=== PATIENT | female | born 1990 | race Caucasian/White ===

== ENCOUNTER → 2016-12-02 | Outpatient (CLI) | payer BC ==
--- NOTE | 2016-12-02 15:36 | US ---
EXAMINATION TYPE: US OB anatomy transabd DATE OF EXAM: 12/02/2016 11:40 AM COMPARISON: NONE HISTORY: 26-year-old female LGA TECHNIQUE: Transabdominal (TA) FINDINGS: EXAM MEASUREMENTS: GESTATIONAL AGE / DATING Physician Established: (18 weeks/6 days) EDC: 04/29/17 Dates by LMP: unknown Dates by First Scan: no prior Dates by Current Scan for: (19 weeks/1 days) EDC: 04/27/17 SURVEY IUP: Single PLACENTA: Anterior PREVIA: No previa TAINA: 14.5 cm Normal CERVICAL LENGTH (transabdominal: norm > 3.0cm): Long and closed, measured at 7.9 cm by the sonographe r. BIOMETRY PRESENTATION: Breech LIE: Transverse lie with head maternal RT BPD: 4.4 cm 19 weeks / 1 days HC: 16.2 cm 19 weeks / 0 days AC: 14.9 cm 20 weeks / 1 days FL: 3.0 cm 19 weeks / 1 days ESTIMATED WEIGHT IN GRAMS: 301 grams ESTIMATED WEIGHT IN LBS/OZS: 0 lbs. 11 oz. WEIGHT PERCENTAGE BASED ON ESTABLISHED DATE: 86.2 % HC/AC: 1.08 (1.09 - 1.26) FL/AC: 19.85 HEART RATE: 150 bpm RHYTHM: Normal ANATOMY SEEN (within normal limits): Cisterna Magna (< 1.1 cm) - 0.3cm Nuchal Fold (< 0.6 cm) - 0.3cm Cerebellum (varies with age) - 1.6cm Choroid Plexus (bilateral) Midline Falx Cavus Septi Pellucidi Four Chamber Heart Outflow tracts: LVOT/RVOT Stomach Situs Diaphragm Kidneys (bilateral) Bladder Cord Insert Three Vessel Cord Arms (bilateral) Legs (bilateral) ANATOMY NOT SEEN: due to position Lateral Vent (< 1 cm) - will need to be remeasured in the correct location. Longitudinal Spine Transverse Spine Nose / Lips - bottom lip not seen TECHNOLOGIST IMPRESSION: Single viable IUP 19wks/1day with ALVIN of 04/27/17. Patient scheduled for OB callback 12/12/16 at 3:40pm to obtain spine images IMPRESSION: 1. Single live intrauterine with established gestational age of 18 weeks 6 days. Current ul trasound biometry is concordant (19 weeks 1 day) placing the child at the 86th percentile for weight. 2. A few of the structures on the survey were suboptimally visualized (lateral ventricles, long itudinal and transverse spine, nose/lips). Patient has been scheduled for a rescan for missed structu res on 12/12/2016. 3. We note a borderline low HC/AC though individual biometry falls within the normal range. Thi s can be reassessed on the rescan.
--- NOTE | 2016-12-13 08:02 | US ---
EXAMINATION TYPE: US OB Call Back DATE OF EXAM: 12/12/2016 3:37 PM COMPARISON: 12/02/2016 CLINICAL HISTORY: OB Call Back. Spine, lat ventr, nose and lips, hc/ac GESTATIONAL AGE / DATING Dates by Initial Survey Scan: (20 weeks/2 days) EDC: 04/27/2017 HEART RATE: 143 bpm RHYTHM: Normal ANATOMY SEEN (second anatomic survey look): Lateral Vent (< 1 cm):0.6 cm Nose / Lips: yes Longitudinal Spine: yes Transverse Spine: yes hc/ac ratio: 1.18 (1.09-1.26) wnl TECHNOLOGIST IMPRESSION: vaible iup, age appropiate Patient return for directed imaging to complete the anatomy ultrasound of 12/02/2016. IMPRESSION: Single intrauterine gestation. Additional imaging performed to complete the anatomy. Portions i xochilt at this time are normal. 2. Please also see 12/02/2016 ultrasound report.
== END | disposition home or self-care (01) ==
LOC: RADUSWWP 10:51
PROVIDERS: ATTEND Obstetrics & Gynecology
DX: O36.62X0 Maternal care for excessive fetal growth, second trimester, not applicable or unspecified (principal); Z3A.18 18 weeks gestation of pregnancy
CPT/HCPCS: 76811

== ENCOUNTER 2017-04-16 14:36 | Outpatient (CLI) | payer BC ==
[2017-04-16 15:29] LABS: Basophils # (A) 0.1 k/uL (0-0.2); Basophils % (A) 1 %; CH 31.9; CHCM 33.9; Eosinophils # (A) 0.1 k/uL (0-0.7); Eosinophils % (A) 1 %; HCT 37.2 % (34.0-46.0); HDW 2.63; HGB 12.3 gm/dL (11.4-16.0); Luc # (Auto) 0.27; Luc % (Auto) 3; Lymphocytes # (A) 1.5 k/uL (1.0-4.8); Lymphocytes % (A) 16 %; MCH 31.4 pg (25.0-35.0); MCHC 33.2 g/dL (31.0-37.0); MCV 94.6 fL (80.0-100.0); Mean Platelet Volume 7.3; Monocytes # (A) 0.8 k/uL (0-1.0); Monocytes % (A) 8 %; Neutrophils # (A) 6.6 k/uL (1.3-7.7); Neutrophils % (A) 72 %; RBC 3.93 m/uL (3.80-5.40); RDW 13.9 % (11.5-15.5); WBC 9.3 k/uL (3.8-10.6); WBC (Perox) 9.84
[2017-04-16 15:38] LABS: Appearance,Urine Clear (Clear); Bacteria,Urine Few /hpf; Bilirubin,Urine Negative (Negative); Glucose,Urine (UA) Negative (Negative); Ketones,Urine Negative (Negative); Leukocyte Esterase,Urine Small (Negative); Nitrite,Urine Negative (Negative); Particle Count 1974; Protein,Urine Negative (Negative); RBC,Urine 1 /hpf (0-5); Specific Gravity,Urine 1.004 (1.001-1.035); Squamous Epithelial Cell,Urine <1 /hpf (0-4); UA Billing (MACRO vs. MICRO) MICRO; Urobilinogen,Urine <2.0 mg/dL (<2.0); WBC,Urine 2 /hpf (0-5)
[2017-04-16 15:40] LABS: ALT 42 U/L (9-52); AST 22 U/L (14-36); Blood Urea Nitrogen 7 mg/dL (7-17); LDH 398 U/L (313-618); Non-African American GFR(MDRD) >60 (>60 ml/min/1.73 sqM); Uric Acid 2.6 mg/dL (3.7-7.4)
== END 2017-04-16 16:41 | disposition home or self-care (01) ==
LOC: FBPOP 14:36
PROVIDERS: ATTEND Obstetrics & Gynecology
DX: O16.3 Unspecified maternal hypertension, third trimester (principal); Z3A.38 38 weeks gestation of pregnancy
CPT/HCPCS: 59025; 81001; 82565; 83615; 84450; 84460; 84520; 84550; 85025; 99215

== ENCOUNTER 2017-04-24 05:41 | Inpatient (IN) | payer BC ==
[2017-04-24] MEDS ORDERED: LIDOCAINE 1% (PF) 10 MG/ML (30 ML SDV) SQ PRN (06:05)
[2017-04-24] MEDS ORDERED: TERBUTALINE 1 MG/ML VIAL SQ PRN (06:05)
[2017-04-24] MEDS ORDERED: OXYTOCIN 20 UNITS/1000 ML NS 1,000 ML IV SCH (06:05)
[2017-04-24] MEDS ORDERED: CARBOPROST TROMETHAMINE 250 MCG/ML 1 ML AMP IM PRN (06:05)
[2017-04-24] MEDS ORDERED: OXYTOCIN 10 UNIT/ML 1 ML VIAL IM PRN (06:05)
[2017-04-24] MEDS ORDERED: METHYLERGONOVINE 0.2 MG/ML 1 ML AMP IM PRN (06:05)
--- NOTE | 2017-04-24 06:10 | P.HPOB ---
History of Present Illness H&P Date: 04/24/17 Chief Complaint: Patient's presenting for requested induction of labor. This patient is a pleasant 26-year-old 1 para 0 female estimated date of confinement 04/29/2017 estimated gestational age 39-2/7 weeks gestation who is presenting to labor and delivery for requested induction of labor. Patient did have an elevated blood pressure approximately 1-1/2 weeks ago but negative preeclampsia evaluation. Patient is now requesting induction of labor. care has otherwise been uncomplicated. Review of Systems Constitutional: Reports as per HPI Ears, nose, mouth and throat: Denies headache, Denies sore throat Cardiovascular: Denies chest pain, Denies shortness of breath Respiratory: Denies cough Gastrointestinal: Reports heartburn Genitourinary: Reports Menstruation: Reports amenorrhea Musculoskeletal: Denies myalgias Integumentary: Denies pruritus, Denies rash Neurological: Denies numbness, Denies weakness Psychiatric: Denies anxiety, Denies depression Endocrine: Denies fatigue, Denies weight change Past Medical History Past Medical History: No Reported History History of Any Multi-Drug Resistant Organisms: None Reported Past Surgical History: Cholecystectomy Past Anesthesia/Blood Transfusion Reactions: No Reported Reaction Past Psychological History: No Psychological Hx Reported Smoking Status: Never smoker Past Alcohol Use History: None Reported Past Drug Use History: None Reported Medications and Allergies Home Medications Medication Instructions Recorded Confirmed Type Pnv,Calcium 72/Iron/Folic Acid 1 tab PO DAILY 04/16/17 04/24/17 History [ Plus Tablet] Iron 45 mg PO DAILY 04/24/17 04/24/17 History Ranitidine HCl [Zantac] 150 mg PO HS 04/24/17 04/24/17 History Allergies Allergy/AdvReac Type Severity Reaction Status Date / Time Penicillins Allergy Rash/Hives Verified 04/24/17 06:02 Exam - Vital Signs Vital signs: Intake and Output 04/23/17 04/23/17 04/24/17 14:59 22:59 06:59 Other: Weight 86.183 kg Patient Weight 04/24/17 06:59 Weight 86.183 kg - OBG Physical Exam Abdomen: bowel sounds normal, no diffuse tenderness, no bruit present, no guarding noted, no hepatomegaly, no splenomegaly, no mass Vulva: both: normal Vagina: normal moisture, no discharge Cervix: Cervix and office was 1-2 cm dilated 50% effaced Cervix: no lesion, no discharge Uterus: enlarged Adnexa: both: normal Results blood work shows she is O positive, rubella nonimmune, RPR nonreactive , hepatitis B negative, Glucola was normal, group B strep was negative, ultrasounds have shown normal anatomy. Assessment and Plan (1) Third trimester Narrative/Plan: This is a pleasant 26-year-old 1 para 0 female 39-2/7 weeks gestation admitted to labor and delivery for requested induction of labor. Plan is induction of labor and anticipate vaginal delivery. Status: Acute (2) Elective induction of labor planned Status: Acute
[2017-04-24 06:34] VITALS: BMI 27.2
[2017-04-24] MEDS: LACTATED RINGERS 1,000 ML IV SCH ×2 (06:38→12:33)
[2017-04-24 07:02] LABS: Basophils % (A) 0 %; CH 32.6; CHCM 34.5; Eosinophils # (A) 0.1 k/uL (0-0.7); Eosinophils % (A) 1 %; HCT 37.7 % (34.0-46.0); HDW 2.63; HGB 12.3 gm/dL (11.4-16.0); Luc # (Auto) 0.14; Luc % (Auto) 1; Lymphocytes # (A) 1.2 k/uL (1.0-4.8); Lymphocytes % (A) 12 %; MCH 30.9 pg (25.0-35.0); MCHC 32.5 g/dL (31.0-37.0); Mean Platelet Volume 7.3; Monocytes # (A) 0.6 k/uL (0-1.0); Monocytes % (A) 6 %; Neutrophils % (A) 80 %; RBC 3.97 m/uL (3.80-5.40); RDW 14.1 % (11.5-15.5); WBC (Perox) 10.38
[2017-04-24] MEDS ORDERED: BUPIVACAINE (PF) 0.25% 30 ML VIAL ONE (13:24)
[2017-04-24] MEDS ORDERED: SODIUM CHLORIDE 0.9% 100 ML BAG ONE (13:24)
[2017-04-24] MEDS ORDERED: fentaNYL (PF) 50 MCG/ML 5 ML AMP ONE (13:24)
[2017-04-24] MEDS ORDERED: ACETAMINOPHEN TAB 325 MG TAB PO PRN (19:02)
[2017-04-24] MEDS ORDERED: BISACODYL 10 MG SUPP RECTAL PRN (19:02)
[2017-04-24] MEDS ORDERED: SIMETHICONE 80 MG CHEWABLE PO PRN (19:02)
[2017-04-24] MEDS ORDERED: BENZOCAINE/MENTHOL SPRAY 1 GM/SPRAY AEROSOL TOPICAL PRN (19:02)
[2017-04-24] MEDS ORDERED: Acetaminophen-Codeine 300-30mg TAB PO PRN ×2 (19:02)
[2017-04-24] MEDS ORDERED: diphenhydrAMINE 25 MG CAP PO PRN (19:02)
[2017-04-24] MEDS ORDERED: ZOLPIDEM 5 MG TAB PO PRN (19:02)
[2017-04-24] MEDS ORDERED: diphenhydrAMINE 50 MG/ML 1 ML VIAL IVP PRN (19:02)
[2017-04-24] MEDS ORDERED: LANOLIN CREAM 5 GM TUBE TOPICAL PRN (19:02)
[2017-04-24] MEDS ORDERED: MEASLES-MUMPS-RUBELLA VACC/PF 12,500 UNIT/0.5 ML VIAL SQ ONE (19:02)
[2017-04-24] MEDS ORDERED: WITCH HAZEL 1 EACH MED..PAD TOPICAL PRN (19:02)
[2017-04-24] MEDS ORDERED: HYDROCORTISONE 2.5% RECTAL CREAM 30 GM TUBE RECTAL PRN (19:02)
--- NOTE | 2017-04-24 19:25 | P.PROBDLV ---
Vaginal Delivery Note - . Vaginal Delivery Note: Normal vaginal delivery viable male infant Apgars 8 and 9 delivery time is 1849 hrs. Please see dictated H&P for intimate details of this patient's admission. Brief summary this is a pleasant 26-year-old 1 para 0 female 39-2/7 weeks gestation who is admitted to labor and delivery for delivery secondary to mild gestational hypertension at term. I admission patient is approximately 2 cm dilated is artificial rupture membranes for clear fluid. Labor is induced with Pitocin. Patient's labor progresses and she does get an epidural for pain control. Patient pushes for approximately 40 minutes and pushes the head to the perineum. Posterior perineum was infiltrated with 1% lidocaine and a midline episiotomy is made. We then have controlled delivery of the 's head over the perineum. Mouth and nares are bulb suctioned. There is no evidence of a nuchal cord. With gentle downward traction we then have deliver the anterior shoulder and posterior shoulder and rest this infant's body. This is a vigorous viable male infant Apgars are 8 and 9 delivery time is 1849 hrs. After delivery of the infant the umbilical cord is doubly clamped and cut appears to be trivascular. The placenta is then spontaneously delivered intact. Inspection of perineum shows a partial third-degree laceration. About 15% of the sphincter is actually disrupted and a superficial. This is reinforced with 3-0 Vicryl interrupted fashion. The rest of the laceration is repaired with 3-0 Vicryl in a running fashion in the usual manner. Excellent reapproximation is noted. There is also a superficial right labial laceration does not require sutures. This done ARE correct 3. There are no complications. and mother stable delivery room.
[2017-04-24] MEDS: IBUPROFEN 600 MG TAB PO PRN (20:24)
[2017-04-24] MEDS: SENNOSIDES-DOCUSATE SODIUM 1 EACH TAB PO SCH (21:37)
--- NOTE | 2017-04-25 05:49 | P.PNOBGVD ---
Subjective - Subjective Patient reports: Reports appetite normal, Reports voiding normally, Reports pain well controlled, Reports ambulating normally : doing well Objective - Latest Vital Signs Latest vital signs: Vital Signs Temp Pulse Resp BP 04/25/17 04:00 98.2 F 87 16 129/77 04/24/17 23:40 98.4 F 77 16 138/82 04/24/17 21:24 97.7 F 84 16 134/79 04/24/17 20:54 98.6 F 105 H 16 124/70 04/24/17 20:24 98.1 F 98 18 123/57 04/24/17 20:09 100 18 128/74 04/24/17 19:54 97.4 F L 96 18 121/69 04/24/17 19:39 96 18 116/64 04/24/17 19:24 97.8 F 90 18 118/61 04/24/17 06:10 97.6 F 85 16 138/87 Intake and Output 04/24/17 04/24/17 04/25/17 14:59 22:59 06:59 Intake Total 654.117 Balance 654.117 Intake: Intake, IV Titration 654.117 Amount Oxytocin 20 Units/1000 ml 654.117 Ns 1,000 ml @ 1 MILLIUNIT/MIN 3 mls/hr IV .Q24H [facility] Rx#:[id number] Other: # Voids 1 1 - Exam Lungs: bilateral: normal Chest: Normal S1, Normal S2 Extremities: Present: normal Abdomen: Present: normal appearance, soft Uterus: Present: normal, firm - Labs Labs: Abnormal Lab Results - Last 24 Hours (Table) 04/24/17 Range/Units 06:10 Neutrophils # 8.0 H (1.3-7.7) k/uL Assessment and Plan (1) Third trimester Narrative/Plan: Post day 1. Patient is resting without complaints. Vital signs are stable she is afebrile. Uterus is firm nontender she's having normal lochia. My impression is a normal course. Plan is to continue routine care discharge home tomorrow. Current Visit: Yes Status: Acute Code(s): Z33.1 - STATE, INCIDENTAL SNOMED Code(s): 90262312 (2) Elective induction of labor planned Current Visit: Yes Status: Acute Code(s): QKF9057 - SNOMED Code(s): 479293586
[2017-04-25] MEDS: IBUPROFEN 600 MG TAB PO PRN ×2 (06:26→16:50)
[2017-04-25] MEDS: SENNOSIDES-DOCUSATE SODIUM 1 EACH TAB PO SCH ×2 (08:07→19:36)
[2017-04-25] MEDS ORDERED: DIPH,PERTUS(ACELL)TETVAC-LF 0.5 ML VIAL IM ONE (16:21)
[2017-04-26] MEDS: IBUPROFEN 600 MG TAB PO PRN (04:16)
--- NOTE | 2017-04-26 07:08 | P.PNOBGVD ---
Subjective - Subjective Patient reports: Reports appetite normal, Reports voiding normally, Reports pain well controlled, Reports ambulating normally : doing well Objective - Latest Vital Signs Latest vital signs: Vital Signs Temp Pulse Resp BP Pulse Ox 04/25/17 23:54 97.5 F L 83 17 122/85 100 04/25/17 16:00 98.4 F 80 17 112/76 97 04/25/17 12:00 97.8 F 83 17 135/84 100 04/25/17 08:00 97.5 F L 99 17 132/73 98 Intake and Output 04/25/17 04/26/17 04/26/17 22:59 06:59 14:59 Other: # Voids 3 1 - Exam Lungs: bilateral: normal Chest: Normal S1, Normal S2 Extremities: Present: normal Abdomen: Present: normal appearance, soft Uterus: Present: normal, firm Assessment and Plan (1) Third trimester Narrative/Plan: Post day #2. Patient is resting without complaints. Vital signs are stable she's afebrile. I impression this is a normal course. Plan is to continue routine care discharge home later today. Current Visit: Yes Status: Acute Code(s): Z33.1 - STATE, INCIDENTAL SNOMED Code(s): 74480429 (2) Elective induction of labor planned Current Visit: Yes Status: Acute Code(s): [id number] - SNOMED Code(s): 079324627
--- NOTE | 2017-04-26 07:11 | P.DS ---
Providers Date of admission: 04/24/17 05:41 Expected date of discharge: 04/26/17 Attending physician: Elver Mcrae Primary care physician: Stated None - Discharge Diagnosis(es) (1) Third trimester Current Visit: Yes Status: Acute (2) Elective induction of labor planned Current Visit: Yes Status: Acute Hospital Course: Please see dictated H&P for intimate details of this patient's admission. Brief summary is a pleasant 26-year-old 1 para 0 female 39-2/7 weeks gestation admitted to labor and delivery for requested induction of labor. Patient is admitted has uncomplicated induction of labor was on have a vaginal delivery viable male infant. Please see dictated delivery note. day #2 she is felt be stable for discharge home follow up with me in 6 weeks. Procedures: Induction of labor and normal vaginal delivery. Patient Condition at Discharge: Good Plan - Discharge Summary New Discharge Prescriptions: New Acetaminophen-Codeine 300-30mg [Tylenol w/codeine #3] 1 - 2 each PO Q4HR PRN #30 tab PRN Reason: Mild Pain exceeding Tylenol Ibuprofen [Motrin] 600 mg PO Q6HR PRN #40 tab PRN Reason: Mild Pain Or Fever >= 100.5 No Action Pnv,Calcium 72/Iron/Folic Acid [ Plus Tablet] 1 tab PO DAILY Ranitidine HCl [Zantac] 150 mg PO HS Iron 45 mg PO DAILY Discharge Medication List Pnv,Calcium 72/Iron/Folic Acid [ Plus Tablet] 1 tab PO DAILY 04/16/17 [ History] Iron 45 mg PO DAILY 04/24/17 [History] Ranitidine HCl [Zantac] 150 mg PO HS 04/24/17 [History] Acetaminophen-Codeine 300-30mg [Tylenol w/codeine #3] 1 - 2 each PO Q4HR PRN # 30 tab 04/26/17 [Rx] Ibuprofen [Motrin] 600 mg PO Q6HR PRN #40 tab 04/26/17 [Rx] Follow up Appointment(s)/Referral(s): Elver Mcrae MD [STAFF PHYSICIAN] - 06/02/17 2:30 pm Patient Instructions/Handouts: Vaginal Delivery (DC) Activity/Diet/Wound Care/Special Instructions: No intercourse or anything per vagina for 6 weeks. Please call if any fever, chills, excessive vaginal bleeding, and/or abdominal pain. Discharge Disposition: HOME SELF-CARE
[2017-04-26 08:42] VITALS: BP 128/67; PULSE 80; RESP 16; TEMP 97.9
[2017-04-26] MEDS: SENNOSIDES-DOCUSATE SODIUM 1 EACH TAB PO SCH (10:14)
== END 2017-04-26 11:20 | disposition home or self-care (01) | DRG 775 ==
LOC: 4FBP 05:41
PROVIDERS: ADMIT Obstetrics & Gynecology; ATTEND Obstetrics & Gynecology
PROC: 0DQR0ZZ Repair Anal Sphincter, Open Approach (ICD-10-PCS; principal; 2017-04-24)
PROC: 3E033VJ Introduction of Other Hormone into Peripheral Vein, Percutaneous Approach (ICD-10-PCS; principal; 2017-04-24)
PROC: 3E0R3CZ (ICD-10-PCS; principal; 2017-04-24)
PROC: 10907ZC Drainage of Amniotic Fluid, Therapeutic from Products of Conception, Via Natural or Artificial Opening (ICD-10-PCS; principal; 2017-04-24)
PROC: 0W8NXZZ Division of Female Perineum, External Approach (ICD-10-PCS; principal; 2017-04-24)
PROC: 10E0XZZ Delivery of Products of Conception, External Approach (ICD-10-PCS; principal; 2017-04-24)
PROC: 00HU33Z Insertion of Infusion Device into Spinal Canal, Percutaneous Approach (ICD-10-PCS; principal; 2017-04-24)
DX: O13.4 Gestational [pregnancy-induced] hypertension without significant proteinuria, complicating childbirth (principal); O70.20 Third degree perineal laceration during delivery, unspecified; Z88.0 Allergy status to penicillin; Z37.0 Single live birth; Z3A.39 39 weeks gestation of pregnancy
CPT/HCPCS: 85025; 88307; 90471; 90472; 90707; 90715

== ENCOUNTER → 2018-05-09 | Outpatient (CLI) | payer BC ==
[2018-05-09 10:25] LABS: Appearance,Urine Clear (Clear); Bilirubin,Urine Negative (Negative); Blood,Urine Negative (Negative); Color,Urine Yellow; Glucose,Urine (UA) Negative (Negative); Ketones,Urine Negative (Negative); Leukocyte Esterase,Urine Negative (Negative); Nitrite,Urine Negative (Negative); Protein,Urine Negative (Negative); Specific Gravity,Urine 1.008 (1.001-1.035); Urobilinogen,Urine <2.0 mg/dL (<2.0)
== END | disposition home or self-care (01) ==
LOC: LABWHC1 10:00
PROVIDERS: ATTEND Obstetrics & Gynecology
DX: R30.0 Dysuria (principal)
CPT/HCPCS: 81003; 87086

== ENCOUNTER 2018-10-29 10:36 | Outpatient (CLI) | payer OTHER ==
[2018-10-29 12:39] VITALS: BP 137/91; PULSE 111; RESP 16; TEMP 97.3
--- NOTE | 2018-11-18 08:35 | P.MSEPDOC ---
Presenting Problems - Arrival Data Date of Arrival on Unit: 10/29/18 Time of Arrival on Unit: 10:49 Mode of Transport: Ambulatory - Complaint OB-Reason for Admission/Chief Complaint: NST Medical History - Information : 2 Para: 1 - Gestational Age Gestational Age by ALVIN (wks/days): 37 Weeks and 0 Days Review of Systems - Review of Systems Constitutional: No problems Breast: No problems ENT: No problems Cardiovascular: No problems Respiratory: No problems Gastrointestinal: No problems Genitourinary: No problems Musculoskeletal: No problems Neurological: No problems Skin: No problems Vital Signs - Temperature Temperature: 97.3 F Temperature Source: Temporal Artery Scan - Pulse Right Sitting Brachial Pulse Rate: 111 Pulse Assessment Method: Automatic Cuff - Respirations Respiratory Rate: 16 Oxygen Delivery Method: Room Air O2 Sat by Pulse Oximetry: 100 - Blood Pressure Right Arm Sitting Blood Pressure: 137/91 Blood Pressure Mean: 106 Blood Pressure Source: Automatic Cuff Medical Screen Scoring (Pre) - Cervical Exam Dilation: Exam Deferred Effacement: Exam Deferred - Uterine Contractions Frequency: N/A Duration: N/A Intensity: N/A - Maternal Vital Signs Maternal Temperature: N/A Signs of Preeclampsia: Headache = 1 Maternal Respirations: N/A - Pain Assessment Pain Scale Used: Numeric (1 - 10) Pain Intensity: 0 - Maternal Trauma Maternal Trauma: N/A - Assessment Baseline FHR: 135 Heart Rate - NICHD Category: Category I (Normal) = 0 NST: Reactive Position: N/A Station: N/A - Total Score Total Score (Pre): 1 - Level of Risk Level of Risk: Low (0-5) Physician Notification (Pre) - Physician Notified Physician Notified Date: 10/29/18 Physician Notified Time: 12:15 Spoke With: Dr Kushal Lopez Order Received: Yes - Notification Comment Comment: discharge pt home with instructions Disposition - Disposition OB Disposition: Discharge to home, Written follow up instructions reviewed Discharge Date: 10/29/18 Discharge Time: 12:25 I agree with the RN Medical Screening Exam: Yes Risk & Benefit of care provided described in d/c instruction: Yes Diagnosis: UNSPECIFIED MATERNAL HYPERTENSION, THIRD TRIMESTER
== END 2018-10-29 12:25 | disposition home or self-care (01) ==
LOC: FBPOP 10:36
PROVIDERS: ATTEND Obstetrics & Gynecology
DX: O16.3 Unspecified maternal hypertension, third trimester (principal); Z3A.37 37 weeks gestation of pregnancy
CPT/HCPCS: 59025

== ENCOUNTER → 2018-10-29 | Outpatient (CLI) | payer OTHER ==
[2018-10-29 11:09] LABS: HCT 35.2 % (34.0-46.0); HGB 11.2 gm/dL (11.4-16.0); MCH 28.3 pg (25.0-35.0); MCHC 31.7 g/dL (31.0-37.0); MCV 89.3 fL (80.0-100.0); Mean Platelet Volume 7.2; Platelet Count 267 k/uL (150-450); RBC 3.94 m/uL (3.80-5.40); RDW 14.2 % (11.5-15.5); WBC 9.2 k/uL (3.8-10.6)
[2018-10-29 11:10] LABS: Appearance,Urine Clear (Clear); Bacteria,Urine Occasional /hpf; Bilirubin,Urine Negative (Negative); Blood,Urine Negative (Negative); Color,Urine Light Yellow; Glucose,Urine (UA) Negative (Negative); Ketones,Urine Negative (Negative); Leukocyte Esterase,Urine Small (Negative); Mucus,Urine Rare /hpf; Nitrite,Urine Negative (Negative); PH, Urine 7.5 (5.0-8.0); Protein,Urine Negative (Negative); Specific Gravity,Urine 1.003 (1.001-1.035); Squamous Epithelial Cell,Urine 2 /hpf (0-4); Urobilinogen,Urine <2.0 mg/dL (<2.0); WBC,Urine 1 /hpf (0-5)
[2018-10-29 15:44] LABS: Uric Acid 3.4 mg/dL (2.9-7.7)
[2018-10-29 19:46] LABS: Creatinine,Urine Random 22.3 mg/dL
[2018-10-29 20:25] LABS: Total Protein,Urine Random <4.0 mg/dL (0.0-13.5)
== END ==
LOC: LABWHC1 10:09
PROVIDERS: ATTEND Obstetrics & Gynecology
DX: O14.90 Unspecified pre-eclampsia, unspecified trimester (principal); Z3A.00 Weeks of gestation of pregnancy not specified
CPT/HCPCS: 36415; 81001; 82565; 82570; 83615; 84156; 84450; 84460; 84520; 84550; 85027

== ENCOUNTER 2018-11-03 10:19 | Outpatient (CLI) | payer OTHER ==
[2018-11-03 16:29] VITALS: BP 134/87; PULSE 90; RESP 16; TEMP 98.1
--- NOTE | 2018-11-04 08:50 | P.MSEPDOC ---
Presenting Problems - Arrival Data Date of Arrival on Unit: 11/03/18 Time of Arrival on Unit: 10:20 Mode of Transport: Ambulatory - Complaint OB-Reason for Admission/Chief Complaint: NST Medical History - Information : 2 Para: 1 Term: 1 : 0 Abortions: Spontaneous or Elective: 0 Number of Living Children: 1 - Gestational Age Gestational Age by ALVIN (wks/days): 38 Weeks and 6 Days Review of Systems - Review of Systems Constitutional: No problems Breast: No problems ENT: No problems Cardiovascular: No problems Respiratory: No problems Gastrointestinal: No problems Genitourinary: No problems Musculoskeletal: No problems Neurological: No problems Skin: No problems Vital Signs - Temperature Temperature: 98.1 F Temperature Source: Oral - Pulse Right Brachial Pulse Rate: 90 Pulse Assessment Method: Automatic Cuff - Respirations Respiratory Rate: 16 Oxygen Delivery Method: Room Air - Blood Pressure Right Arm Blood Pressure: 134/87 Blood Pressure Mean: 102 Blood Pressure Source: Automatic Cuff Medical Screen Scoring (Pre) - Cervical Exam Dilation: Exam Deferred Effacement: Exam Deferred Membranes: Intact - Uterine Contractions Frequency: N/A Duration: N/A Intensity: N/A - Maternal Vital Signs Maternal Temperature: N/A Maternal Blood Pressure: N/A Signs of Preeclampsia: N/A Maternal Respirations: N/A - Pain Assessment Pain Scale Used: Numeric (1 - 10) Pain Intensity: 0 Pain Management Goal: 0 - Maternal Trauma Maternal Trauma: N/A - Assessment Baseline FHR: 135 Heart Rate - NICHD Category: Category I (Normal) = 0 NST: Reactive Position: N/A Station: N/A - Total Score Total Score (Pre): 0 - Level of Risk Level of Risk: N/A Physician Notification (Pre) - Physician Notified Physician Notified Date: 11/03/18 Physician Notified Time: 11:00 Physician/Practitioner Notifed:: Dr. Dunbar Spoke With: Dr. Dunbar New Order Received: Yes - Notification Comment Comment: d/c home Disposition - Disposition Discharge Date: 11/03/18 Discharge Time: 11:00 I agree with the RN Medical Screening Exam: Yes Risk & Benefit of care provided described in d/c instruction: Yes Diagnosis: GESTATIONAL HTN W/O SIGNIFICANT PROTEINURIA, THIRD TRIMESTER
== END 2018-11-03 11:00 | disposition home or self-care (01) ==
LOC: FBPOP 10:19
PROVIDERS: ATTEND Obstetrics & Gynecology
DX: O13.3 Gestational [pregnancy-induced] hypertension without significant proteinuria, third trimester (principal); Z3A.38 38 weeks gestation of pregnancy
CPT/HCPCS: 59025; 99213

== ENCOUNTER 2018-11-12 05:41 | Inpatient (IN) | payer BC, OTHER ==
--- NOTE | 2018-11-11 07:22 | P.HPOB ---
History of Present Illness H&P Date: 11/11/18 Chief Complaint: Requested induction of labor This patient is a pleasant 28-year-old 2 para 1 female estimated date of confinement 11/19/2018 estimated gestational age 39 weeks who presents to labor and delivery for requested induction of labor. Patient's care has been uncomplicated. Patient uncomfortable desires delivery at this time. Review of Systems Gastrointestinal: Reports heartburn Genitourinary: Reports Menstruation: Reports amenorrhea Past Medical History Past Medical History: No Reported History History of Any Multi-Drug Resistant Organisms: None Reported Past Surgical History: Cholecystectomy, Orthopedic Surgery Past Anesthesia/Blood Transfusion Reactions: No Reported Reaction Past Psychological History: No Psychological Hx Reported Smoking Status: Never smoker Past Alcohol Use History: None Reported Past Drug Use History: None Reported - Past Family History Mother Additional Family Medical History / Comment(s): Lupus Father Family Medical History: Hypertension Medications and Allergies Home Medications Medication Instructions Recorded Confirmed Type Pnv,Calcium 72/Iron/Folic Acid 1 tab PO DAILY 04/16/17 11/03/18 History [ Plus Tablet] Allergies Allergy/AdvReac Type Severity Reaction Status Date / Time Penicillins Allergy Rash/Hives Verified 11/03/18 10:57 Exam - OBG Physical Exam Abdomen: bowel sounds normal, no diffuse tenderness, no bruit present, no guarding noted, no hepatomegaly, no splenomegaly, no mass Vulva: both: normal Vagina: normal moisture, no discharge Cervix: Cervix in the office is 2 cm dilated 50% effaced -2 station. Cervix: no lesion, no discharge Uterus: enlarged (Fundal height is 38 cm) Results blood work shows she is O positive, rubella immune, hepatitis B is negative, RPR is nonreactive, HIV is nonreactive, Glucola was normal, group B strep was negative, ultrasounds have been normal. Assessment and Plan Assessment: This is a pleasant 28-year-old 2 para 1 female 39 weeks gestation who is requesting elective induction of labor. Plan is induction of labor and anticipate vaginal delivery. (1) Third trimester Status: Acute Code(s): Z33.1 - STATE, INCIDENTAL SNOMED Code(s): 04679210 (2) Elective induction of labor planned Status: Acute Code(s): [id number] - SNOMED Code(s): 982284299
[2018-11-12] MEDS: LACTATED RINGERS 1,000 ML IV SCH ×3 (05:45→15:20)
[2018-11-12] MEDS ORDERED: TERBUTALINE 1 MG/ML VIAL SQ PRN (05:50)
[2018-11-12] MEDS ORDERED: LIDOCAINE 1% INJ 10MG/ML (20 ML MDV) SQ PRN (05:50)
[2018-11-12] MEDS ORDERED: CARBOPROST TROMETHAMINE 250 MCG/ML 1 ML AMP IM PRN (05:50)
[2018-11-12] MEDS ORDERED: OXYTOCIN 10 UNIT/ML 1 ML VIAL IM PRN (05:50)
[2018-11-12] MEDS ORDERED: METHYLERGONOVINE 0.2 MG/ML 1 ML AMP IM PRN (05:50)
[2018-11-12] MEDS ORDERED: OXYTOCIN 20 UNITS/1000 ML NS 1,000 ML IV SCH ×2 (05:50→14:46)
[2018-11-12 05:56] VITALS: RESP 16; BMI 28.1
[2018-11-12 06:14] LABS: Basophils % (A) 0 %; Eosinophils # (A) 0.3 k/uL (0-0.7); Eosinophils % (A) 3 %; HCT 34.8 % (34.0-46.0); HGB 11.8 gm/dL (11.4-16.0); Lymphocytes % (A) 20 %; MCH 30.2 pg (25.0-35.0); MCV 88.8 fL (80.0-100.0); Mean Platelet Volume 7.2; Monocytes # (A) 0.6 k/uL (0-1.0); Monocytes % (A) 6 %; Neutrophils # (A) 6.8 k/uL (1.3-7.7); Neutrophils % (A) 69 %; Platelet Count 259 k/uL (150-450); RBC 3.93 m/uL (3.80-5.40); RDW 14.7 % (11.5-15.5); WBC 9.9 k/uL (3.8-10.6)
[2018-11-12] MEDS ORDERED: SODIUM CHLORIDE 0.9% 100 ML BAG ONE (09:50)
[2018-11-12] MEDS ORDERED: ROPIVACAINE 5MG/ML 20ML VIAL ONE (09:50)
[2018-11-12] MEDS ORDERED: fentaNYL (PF) 50 MCG/ML 5 ML AMP ONE (09:50)
[2018-11-12] MEDS ORDERED: diphenhydrAMINE 50 MG/ML 1 ML VIAL IVP PRN (14:46)
[2018-11-12] MEDS ORDERED: diphenhydrAMINE 25 MG CAP PO PRN (14:46)
[2018-11-12] MEDS ORDERED: SIMETHICONE 80 MG CHEWABLE PO PRN (14:46)
[2018-11-12] MEDS ORDERED: LANOLIN CREAM 5 GM TUBE TOPICAL PRN (14:46)
[2018-11-12] MEDS ORDERED: ZOLPIDEM 5 MG TAB PO PRN (14:46)
[2018-11-12] MEDS ORDERED: BISACODYL 10 MG SUPP RECTAL PRN (14:46)
[2018-11-12] MEDS ORDERED: WITCH HAZEL 1 EACH MED..PAD TOPICAL PRN (14:46)
[2018-11-12] MEDS ORDERED: ACETAMINOPHEN TAB 325 MG TAB PO PRN (14:46)
[2018-11-12] MEDS ORDERED: BENZOCAINE/MENTHOL SPRAY 1 GM/SPRAY AEROSOL TOPICAL PRN (14:46)
[2018-11-12] MEDS ORDERED: HYDROCORTISONE 2.5% RECTAL CREAM 30 GM TUBE RECTAL PRN (14:46)
[2018-11-12] MEDS ORDERED: IBUPROFEN 600 MG TAB PO PRN (14:46)
[2018-11-12] MEDS: SENNOSIDES-DOCUSATE SODIUM 1 EACH TAB PO SCH ×2 (15:19→20:16)
--- NOTE | 2018-11-12 17:45 | P.PROBDLV ---
Vaginal Delivery Note - . Vaginal Delivery Note: Normal vaginal delivery viable male infant Apgars 9 and 9 delivery time is 1353 hrs. Please see dictated H&P for intimate details of this patient's admission. In brief summary this is a pleasant 28-year-old 2 para 1 female 39 weeks gestation admitted to labor and delivery for requested elective induction of labor. Patient admitted she 3 cm dilated has artificial rupture membranes for clear fluid. Labor is induced with Pitocin. Labor progresses normally and she does get an epidural for pain control. Patient gets to complete pushes the head to the perineum. Posterior perineum is supported we have controlled delivery of 's head over the perineum. Mouth and nares are bulb suctioned. There is a nuchal cord 1 which is easily reduced. With gentle downward traction we then have delivery anterior and posterior shoulder and rest this 's body. Is a vigorous viable male infant Apgars are 9 and 9 delivery time is 1353 hrs. After delivery of the the umbilical cord is allowed to quit pulsating is doubly clamped and cut. The placenta is then spontaneously delivered intact. She has some atony at this time and some bleeding but is given one dose of Methergine and uterine massage bleeding does subside. As viable loss is 400 mL from delivery. Inspection of perineum shows second-degree laceration was repaired with 3-0 Vicryl usual fashion. Good reapproximation is noted. There are no complications. All counts are correct 3. and mother stable delivery room.
--- NOTE | 2018-11-13 06:13 | P.PNOBGVD ---
Subjective - Subjective Patient reports: Reports appetite normal, Reports voiding normally, Reports pain well controlled, Reports ambulating normally : doing well Objective - Latest Vital Signs Latest vital signs: Vital Signs Temp Pulse Resp BP 11/12/18 23:43 98.4 F 83 16 128/74 11/12/18 20:00 98 F 90 16 135/84 11/12/18 16:05 97.5 F L 84 16 118/60 11/12/18 15:35 97 16 145/65 11/12/18 15:05 93 16 137/85 11/12/18 14:50 102 H 16 132/68 11/12/18 14:35 102 H 16 133/68 11/12/18 14:20 97 16 122/66 11/12/18 14:05 98.2 F 89 16 121/79 Intake and Output 11/12/18 11/12/18 11/13/18 14:59 22:59 06:59 Intake Total 522.75 3300 Balance 522.75 3300 Intake: Intake, IV Titration 522.75 3300 Amount Lactated Ringers 1,000 ml 2000 @ 125 mls/hr IV .Q8H [facility] Rx#:[id number] Oxytocin 20 Units/1000 ml 522.75 Ns 1,000 ml @ 1 MILLIUNIT/MIN 3 mls/hr IV .Q24H [facility] Rx#:[id number] Oxytocin 20 Units/1000 ml 1300 Ns 1,000 ml @ Per Protocol IV .Q0M [facility] Rx#: [id number] Other: # Voids 1 - Exam Lungs: bilateral: normal Chest: Normal S1, Normal S2 Extremities: Present: normal Abdomen: Present: normal appearance, soft Uterus: Present: normal, firm Assessment and Plan Assessment: day #1. Patient is resting without complaints wishes to go home. Vital signs are stable she is afebrile. Uterus is firm nontender and she is having normal lochia. My impression this is a normal course. Plan is to continue routine care discharge home later today. (1) Third trimester Current Visit: No Status: Acute Code(s): Z33.1 - STATE, INCIDENTAL SNOMED Code(s): 37640769 (2) Elective induction of labor planned Current Visit: No Status: Acute Code(s): [id number] - SNOMED Code(s): 987032433
--- NOTE | 2018-11-13 06:17 | P.DS ---
Providers Date of admission: 11/12/18 05:41 Expected date of discharge: 11/13/18 Attending physician: Elver Mcrae Primary care physician: Stated None - Discharge Diagnosis(es) (1) Third trimester Current Visit: No Status: Acute (2) Elective induction of labor planned Current Visit: No Status: Acute Hospital Course: Please see dictated H&P for intimate details of this patient's admission. Brief summary is a pleasant 28-year-old 2 para 1 female 39 weeks gestation is admitted to labor and delivery for elective induction of labor. Patient is uncomplicated induction of labor goes on have a vaginal delivery viable male . Please see dictated delivery note. day #1 patient without complaints and she wishes to go home. Patient's felt be stable for discharge home follow up with me in 6 weeks. Procedures: Induction of labor and normal vaginal delivery Plan - Discharge Summary New Discharge Prescriptions: New Ibuprofen [Motrin] 600 mg PO Q6HR PRN #40 tab PRN Reason: Mild Pain Or Fever >= 100.5 No Action Pnv,Calcium 72/Iron/Folic Acid [ Plus Tablet] 1 tab PO DAILY Discharge Medication List Pnv,Calcium 72/Iron/Folic Acid [ Plus Tablet] 1 tab PO DAILY 04/16/17 [ History] Ibuprofen [Motrin] 600 mg PO Q6HR PRN #40 tab 11/13/18 [Rx] Follow up Appointment(s)/Referral(s): Elver Mcrae MD [STAFF PHYSICIAN] - 12/24/18 2:30 pm Patient Instructions/Handouts: Vaginal Delivery (DC) Activity/Diet/Wound Care/Special Instructions: No intercourse or anything per vagina for 6 weeks. Please call if any fever, chills, excessive vaginal bleeding, and/or abdominal pain. Discharge Disposition: HOME SELF-CARE
[2018-11-13 08:21] VITALS: BP 118/74; PULSE 91; TEMP 97.7
[2018-11-13] MEDS: SENNOSIDES-DOCUSATE SODIUM 1 EACH TAB PO SCH (08:22)
== END 2018-11-13 15:10 | disposition home or self-care (01) | DRG 807 ==
LOC: 4FBP 05:41
PROVIDERS: ADMIT Obstetrics & Gynecology; ATTEND Obstetrics & Gynecology
PROC: 10E0XZZ Delivery of Products of Conception, External Approach (ICD-10-PCS; principal; 2018-11-12)
PROC: 0KQM0ZZ Repair Perineum Muscle, Open Approach (ICD-10-PCS; 2018-11-12)
PROC: 00HU33Z Insertion of Infusion Device into Spinal Canal, Percutaneous Approach (ICD-10-PCS; 2018-11-12)
PROC: 3E0R3BZ Introduction of Anesthetic Agent into Spinal Canal, Percutaneous Approach (ICD-10-PCS; 2018-11-12)
PROC: 10907ZC Drainage of Amniotic Fluid, Therapeutic from Products of Conception, Via Natural or Artificial Opening (ICD-10-PCS; 2018-11-12)
PROC: 3E033VJ Introduction of Other Hormone into Peripheral Vein, Percutaneous Approach (ICD-10-PCS; 2018-11-12)
DX: O69.81X0 Labor and delivery complicated by cord around neck, without compression, not applicable or unspecified (principal); Z37.0 Single live birth; O70.1 Second degree perineal laceration during delivery; Z3A.39 39 weeks gestation of pregnancy; Z90.49 Acquired absence of other specified parts of digestive tract; Z79.899 Other long term (current) drug therapy; Z88.0 Allergy status to penicillin; Z82.49 Family history of ischemic heart disease and other diseases of the circulatory system; Z82.69 Family history of other diseases of the musculoskeletal system and connective tissue
CPT/HCPCS: 85025; 86850; 86900; 86901

== ENCOUNTER → 2021-09-14 | Outpatient (CLI) | payer BC ==
--- NOTE | 2021-09-14 15:25 | USB ---
EXAMINATION TYPE: US breast complete LT DATE OF EXAM: 09/14/2021 COMPARISON: NONE CLINICAL HISTORY: N64.4 Breast pain. Findings: The left breast was scanned with ultrasound in all 4 quadrants in the retroareolar region and axillar y tail. An incidental intramammary lymph node is noted in the left breast at 3:00. No definite sonogr aphic correlate for patient's palpable abnormality which has since resolved. IMPRESSION: No definite sonographic correlate for patients left breast palpable abnormality which has since resol adrien. Clinical follow-up is recommended. Negative mammogram and/or ultrasound reports not determined b iopsy of a clinically suspicious palpable lesion. BI-RADS 2, benign. Screening mammogram is recommended at age 41.
== END | disposition home or self-care (01) ==
LOC: RADUSWWP 14:41
PROVIDERS: ATTEND Obstetrics & Gynecology
DX: N64.4 Mastodynia (principal)